=== PATIENT | female | born 1935 | race Caucasian/White ===

== ENCOUNTER 2019-03-03 19:00 | Inpatient (IN) ==
[2019-03-03] MEDS ORDERED: ONDANSETRON 4 MG/2 ML VIAL IV STA (19:39)
[2019-03-03] MEDS ORDERED: DILTIAZEM 50 MG/10 ML VIAL IV STA (19:39)
[2019-03-03] MEDS ORDERED: methylPREDNISolone SOD SUC 125 MG/2 ML VIAL IV STA (19:39)
[2019-03-03] MEDS ORDERED: FUROSEMIDE 100 MG/10 ML VIAL IV STA (19:39)
[2019-03-03 19:52] LABS: Basophils % 0.2 % (0.0-0.8); Hematocrit 41.3 VOL% (35.7-47.0); Hemoglobin 13.1 GM/DL (12.0-16.0); Immature Granulocytes % 0.9 %; Immature Granulocytes Absolute 0.11 #; Lymphocytes # 0.9 10*3/uL (1.4-4.0); Lymphocytes % 7.6 % (21.3-54.2); Mean Corpuscular HGB Conc 31.7 GM/DL (32-36); Mean Corpuscular Volume 97.2 FL (87-102); Mean Platelet Volume 10.9 FL (9.6-12.0); Monocytes % 5.1 % (1.7-12.7); Neutrophils % 86.2 % (38.7-73.9); Platelet Count 144 T/CUMM (130-400); Red Blood Count 4.25 MC/CUMM (3.8-5.5); Red Cell Distribution Width 13.2 % (9.3-17.3); White Blood Count 12.1 T/CUMM (4-12)
[2019-03-03] MEDS ORDERED: ALBUTEROL NEB SOLN 5 MG/ML 20 ML/BOTTLE RESP TX SCH (20:00)
[2019-03-03 20:02] LABS: INR 1.1; PT Patient Result 12.3 SECS
[2019-03-03 20:12] LABS: Albumin 3.1 G/DL (3.4-5.0); Bilirubin,Total 0.8 MG/DL (0.2-1.0); Calcium 8.4 MG/DL (8.5-10.1); Osmolality,Calculated 289.3 MOS/KG (273-304); Total Protein 7.2 G/DL (6.4-8.3)
[2019-03-03 20:19] LABS: Eosinophils 1 % (0-10); Lymphocytes 8 % (20-55); Segmented Neutrophils 86 % (50-85); Total Cells Counted 100
[2019-03-03 20:20] LABS: Hypochromasia Slight; Platelet Estimate Adequate
[2019-03-03] MEDS ORDERED: POTASSIUM CHLORIDE 20 MEQ TABLET PO STA (20:30)
[2019-03-03] MEDS ORDERED: MAGNESIUM SULF RIDER 2 GM in PREMIX 1 EACH IV STA (20:30)
[2019-03-03] MEDS ORDERED: SODIUM CHLORIDE 0.9% 500 ML IV STA (20:39)
[2019-03-03] MEDS ORDERED: ONDANSETRON 4 MG/2 ML VIAL IV PRN (21:27)
[2019-03-03] MEDS ORDERED: ALBUTEROL 2.5 MG/3 ML NEB RESP TX PRN (21:27)
[2019-03-03] MEDS ORDERED: MAGNESIUM SULF RIDER 4 GM in PREMIX 1 EACH IV PRN (21:32)
[2019-03-03 21:46] LABS: Apearance,Urine CLEAR (Clear); Bilirubin,Urine Negative (Negative); Blood, Urine Large mg/dL (Negative); Glucose,Urine (UA) Negative (Negative); Ketones,Urine Negative (Negative); Mucus,Urine Occasional /LPF (Occasional); Nitrite,Urine Negative (Negative); Protein,Urine 30 MG/DL; Squamous Epithelial Cell,Urine Occasional /HPF (0-10); Urine Color Yellow (Yellow); Urine Specific Gravity 1.013 (1.001-1.035); Urine Urobilinogen < 2.0 EU/DL (0.2-1.0); WBC,Urine 1 /HPF (0-6)
[2019-03-03] MEDS: SODIUM CHLORIDE 0.9% 1,000 ML IV SCH (21:56)
[2019-03-03] MEDS ORDERED: ENOXAPARIN 30 MG/0.3 ML SYRINGE SUBCUT SCH (22:00)
[2019-03-03 22:52] LABS: CKMB % 0.6 %; Troponin I 0.055 NG/ML (0.00-0.045)
[2019-03-04] MEDS: SODIUM CHLORIDE 0.9% 1,000 ML IV SCH (00:49)
[2019-03-04] MEDS: MAGNESIUM SULF RIDER 2 GM in PREMIX 1 EACH IV PRN ×2 (05:54→07:37)
[2019-03-04 07:14] LABS: Basophils % 0.3 % (0.0-0.8); Hematocrit 38.8 VOL% (35.7-47.0); Hemoglobin 12.3 GM/DL (12.0-16.0); Immature Granulocytes % 0.5 %; Immature Granulocytes Absolute 0.06 #; Lymphocytes # 0.9 10*3/uL (1.4-4.0); Lymphocytes % 8.2 % (21.3-54.2); Mean Corpuscular HGB Conc 31.7 GM/DL (32-36); Mean Corpuscular Volume 99.5 FL (87-102); Mean Platelet Volume 10.9 FL (9.6-12.0); Monocytes % 3.3 % (1.7-12.7); Neutrophils % 87.7 % (38.7-73.9); Platelet Count 125 T/CUMM (130-400); Red Cell Distribution Width 13.5 % (9.3-17.3); White Blood Count 11.4 T/CUMM (4-12)
[2019-03-04 07:40] LABS: Band Neutrophils 58 % (0-10); Lymphocytes 5 % (20-55); Metamyelocytes 2 %; Platelet Estimate Adequate; Segmented Neutrophils 31 % (50-85); Total Cells Counted 100
[2019-03-04 07:41] LABS: Anisocytosis 1+; Poikilocytosis Slight
[2019-03-04] MEDS ORDERED: LORazepam 0.5 MG TABLET PO ONE (08:18)
[2019-03-04] MEDS: FLUoxetine 20 MG CAPSULE PO SCH (08:33)
[2019-03-04] MEDS: DILTIAZEM CD 120 MG CAPSULE PO SCH (08:33)
[2019-03-04] MEDS: APIXABAN 5 MG TABLET PO SCH ×2 (08:33→21:57)
[2019-03-04] MEDS: PANTOPRAZOLE 40 MG TABLET PO SCH (08:33)
[2019-03-04] MEDS: FLUCONAZOLE 100 MG TABLET PO SCH (08:33)
[2019-03-04] MEDS: POTASSIUM CHLORIDE RIDER 10 MEQ in PREMIX 1 EACH IV PRN ×3 (11:33→13:33)
[2019-03-04] MEDS: FUROSEMIDE 40 MG TABLET PO SCH (14:36)
[2019-03-04] MEDS: ACETAMINOPHEN 325 MG TABLET PO PRN (16:13)
[2019-03-04 19:48] LABS: Albumin 2.7 G/DL (3.4-5.0); Bilirubin,Total 0.5 MG/DL (0.2-1.0); Calcium 7.9 MG/DL (8.5-10.1); Osmolality,Calculated 302.1 MOS/KG (273-304); Total Protein 6.9 G/DL (6.4-8.3)
[2019-03-04] MEDS ORDERED: LOPERAMIDE 2 MG CAPSULE PO PRN (21:55)
[2019-03-04] MEDS: AMPICILLIN/SULBACTAM 1,500 MG in SODIUM CHLORIDE 0.9% 100 ML IV SCH (22:36)
[2019-03-05 05:31] LABS: Basophils % 0.2 % (0.0-0.8); Hemoglobin 11.1 GM/DL (12.0-16.0); Immature Granulocytes % 0.8 %; Lymphocytes # 0.8 10*3/uL (1.4-4.0); Lymphocytes % 5.6 % (21.3-54.2); Mean Corpuscular HGB Conc 32.6 GM/DL (32-36); Mean Corpuscular Volume 95.8 FL (87-102); Mean Platelet Volume 11.2 FL (9.6-12.0); Monocytes % 3.5 % (1.7-12.7); Neutrophils % 89.9 % (38.7-73.9); Platelet Count 136 T/CUMM (130-400); Red Blood Count 3.55 MC/CUMM (3.8-5.5); Red Cell Distribution Width 13.2 % (9.3-17.3); White Blood Count 13.3 T/CUMM (4-12)
[2019-03-05 06:03] LABS: Osmolality,Calculated 299.4 MOS/KG (273-304)
[2019-03-05 06:36] LABS: Band Neutrophils 1 % (0-10); Lymphocytes 6 % (20-55); Platelet Estimate Decreased; Segmented Neutrophils 90 % (50-85); Total Cells Counted 100
[2019-03-05] MEDS: FUROSEMIDE 40 MG TABLET PO SCH (09:12)
[2019-03-05] MEDS: DILTIAZEM CD 120 MG CAPSULE PO SCH (09:12)
[2019-03-05] MEDS: FLUCONAZOLE 100 MG TABLET PO SCH (09:12)
[2019-03-05] MEDS: FLECAINIDE 50 MG TABLET PO SCH ×2 (09:12→20:14)
[2019-03-05] MEDS: FLUoxetine 20 MG CAPSULE PO SCH (09:13)
[2019-03-05] MEDS: PANTOPRAZOLE 40 MG TABLET PO SCH (09:13)
[2019-03-05] MEDS: APIXABAN 5 MG TABLET PO SCH ×2 (09:13→20:14)
[2019-03-05] MEDS: AMPICILLIN/SULBACTAM 1,500 MG in SODIUM CHLORIDE 0.9% 100 ML IV SCH ×2 (09:18→22:40)
[2019-03-05] MEDS: POTASSIUM CHLORIDE 20 MEQ TABLET PO PRN ×3 (10:50→16:04)
[2019-03-05] MEDS: FLUTICASONE/SALMETEROL 500-50 DISKUS 14 DOSE INH SCH ×2 (10:51→20:14)
[2019-03-05] MEDS: methylPREDNISolone SOD SUC 40 MG/1 ML VIAL IV SCH ×2 (10:51→17:39)
[2019-03-05] MEDS ORDERED: FUROSEMIDE 20 MG TABLET PO SCH (14:43)
[2019-03-05] MEDS ORDERED: ALBUTEROL/IPRATROPIUM 3 ML NEB RESP TX SCH (15:00)
[2019-03-05] MEDS: ACETAMINOPHEN 325 MG TABLET PO PRN (22:44)
[2019-03-06] MEDS: methylPREDNISolone SOD SUC 40 MG/1 ML VIAL IV SCH ×2 (01:39→10:20)
[2019-03-06 06:02] LABS: Basophils % 0.2 % (0.0-0.8); Hematocrit 34.1 VOL% (35.7-47.0); Hemoglobin 11.1 GM/DL (12.0-16.0); Immature Granulocytes % 1.4 %; Immature Granulocytes Absolute 0.14 #; Lymphocytes # 0.5 10*3/uL (1.4-4.0); Mean Corpuscular HGB Conc 32.6 GM/DL (32-36); Mean Corpuscular Volume 95.8 FL (87-102); Mean Platelet Volume 11.2 FL (9.6-12.0); Monocytes % 1.6 % (1.7-12.7); Neutrophils % 91.8 % (38.7-73.9); Platelet Count 166 T/CUMM (130-400); Red Blood Count 3.56 MC/CUMM (3.8-5.5); Red Cell Distribution Width 13.6 % (9.3-17.3); White Blood Count 9.7 T/CUMM (4-12)
[2019-03-06 06:22] LABS: Band Neutrophils 3 % (0-10); Lymphocytes 4 % (20-55); Segmented Neutrophils 92 % (50-85); Total Cells Counted 100
[2019-03-06 06:23] LABS: Ovalocytes 1+; Platelet Estimate Normal
[2019-03-06 06:37] LABS: Calcium 8.2 MG/DL (8.5-10.1); Osmolality,Calculated 307.1 MOS/KG (273-304)
[2019-03-06] MEDS ORDERED: ALBUTEROL/IPRATROPIUM 3 ML NEB RESP TX SCH (07:00)
[2019-03-06 08:28] VITALS: BP 137/88
[2019-03-06] MEDS ORDERED: SODIUM CHLORIDE 0.9% 1,000 ML IV SCH (08:30)
[2019-03-06] MEDS ORDERED: DILTIAZEM CD 120 MG CAPSULE PO SCH (09:00)
[2019-03-06] MEDS: PANTOPRAZOLE 40 MG TABLET PO SCH (10:14)
[2019-03-06] MEDS: FLECAINIDE 50 MG TABLET PO SCH (10:14)
[2019-03-06] MEDS: FLUoxetine 20 MG CAPSULE PO SCH (10:14)
[2019-03-06] MEDS: APIXABAN 5 MG TABLET PO SCH (10:15)
[2019-03-06] MEDS: FLUCONAZOLE 100 MG TABLET PO SCH (10:15)
[2019-03-06] MEDS: AMPICILLIN/SULBACTAM 1,500 MG in SODIUM CHLORIDE 0.9% 100 ML IV SCH (10:15)
[2019-03-06] MEDS: FLUTICASONE/SALMETEROL 500-50 DISKUS 14 DOSE INH SCH (10:19)
== END 2019-03-06 12:30 | disposition swing bed (61) | DRG 308 ==
LOC: EDBD → EDUNIT# → N.ED 19:00 → N.EDINP 21:27 → SUATTDRO 23:50 → SUPCPDRO 23:50 → N.CC 23:54 → N.TELES 03-04 19:58
PROVIDERS: ADMIT Internal Medicine Geriatric Medicine; ATTEND Internal Medicine

== ENCOUNTER 2019-09-27 21:11 | Inpatient (IN) ==
[2019-09-27] MEDS ORDERED: ONDANSETRON 4 MG/2 ML VIAL IV STA (21:34)
[2019-09-27] MEDS ORDERED: cefTRIAXone 1,000 MG in SODIUM CHLORIDE 0.9% 100 ML IV STA (21:34)
[2019-09-27] MEDS ORDERED: methylPREDNISolone SOD SUC 125 MG/2 ML VIAL IV STA (21:34)
[2019-09-27] MEDS ORDERED: FUROSEMIDE 40 MG/4 ML VIAL IV STA (21:34)
[2019-09-27] MEDS ORDERED: ALBUTEROL NEB SOLN 5 MG/ML 20 ML/BOTTLE RESP TX SCH (22:00)
[2019-09-27 22:05] LABS: Basophils # 0.1 10*3/uL (0.0-0.2); Basophils % 0.6 % (0.0-0.8); Eosinophils # 0.2 10*3/uL (0.0-0.87); Eosinophils % 1.5 % (0.00-10.9); Hematocrit 40.6 VOL% (35.7-47.0); Hemoglobin 13.1 GM/DL (12.0-16.0); Immature Granulocytes % 4.2 %; Immature Granulocytes Absolute 0.46 #; Lymphocytes # 1.9 10*3/uL (1.4-4.0); Lymphocytes % 17.4 % (21.3-54.2); Mean Corpuscular HGB Conc 32.3 GM/DL (32-36); Mean Corpuscular Volume 97.6 FL (87-102); Mean Platelet Volume 10.1 FL (9.6-12.0); Monocytes % 8.5 % (1.7-12.7); Neutrophils % 67.8 % (38.7-73.9); Platelet Count 270 T/CUMM (130-400); Red Blood Count 4.16 MC/CUMM (3.8-5.5); White Blood Count 10.9 T/CUMM (4-12)
[2019-09-27 22:26] LABS: PT Patient Result 10.8 SECS (9.6-12.2); Partial Thromboplastin Time 26.9 SECS (20.8-36.0)
[2019-09-27 22:36] LABS: Alanine Aminotransferase 20 U/L (13-56); Albumin 3.4 G/DL (3.4-5.0); Alkaline Phosphatase 121 U/L (45-117); Aspartate Amino Transferase 23 U/L (0-37); Blood Urea Nitrogen 44 MG/DL (7-18); Calcium 9.1 MG/DL (8.5-10.1); Estimated Glom Filtration Rate 22 ML/MIN; Glucose 121 MG/DL (74-106); Osmolality,Calculated 286.7 MOS/KG (273-304); Total Protein 7.8 G/DL (6.4-8.3); Troponin I < 0.015 NG/ML (0.00-0.045)
[2019-09-27 22:42] LABS: Apearance,Urine CLEAR (Clear); Bilirubin,Urine Negative (Negative); Blood, Urine Negative (Negative); Glucose,Urine (UA) Negative (Negative); Ketones,Urine Negative (Negative); Mucus,Urine Occasional /LPF (Occasional); Nitrite,Urine Negative (Negative); Protein,Urine Negative; RBC,Urine 1 /HPF (0-4); Squamous Epithelial Cell,Urine Occasional /HPF (0-10); Urine Color Straw (Yellow); Urine Urobilinogen < 2.0 EU/DL (0.2-1.0); WBC,Urine 5 /HPF (0-6)
[2019-09-27 23:05] LABS: ABG Base Excess 0.9 MMOL/L (-2.5-2.5); ABG HCO3 25.1 MMOL/L (20-26); ABG Oxygen Saturation 96.4 % (95-100); ABG PCO2 34.3 MM HG (35-48); ABG PH 7.456 (7.35-7.45); ABG PO2 81.1 MM HG (80-95); Allen Test Positive
[2019-09-27] MEDS ORDERED: ONDANSETRON 4 MG/2 ML VIAL IV PRN (23:49)
[2019-09-27] MEDS ORDERED: DOCUSATE SODIUM 100 MG CAPSULE PO PRN (23:49)
[2019-09-27] MEDS ORDERED: ACETAMINOPHEN 325 MG TABLET PO PRN (23:49)
[2019-09-27] MEDS ORDERED: ALBUTEROL 2.5 MG/3 ML NEB RESP TX PRN (23:54)
[2019-09-27] MEDS ORDERED: hydrALAZINE 20 MG/1 ML VIAL IV PRN (23:57)
[2019-09-27] MEDS ORDERED: POTASSIUM CHLORIDE 20 MEQ TABLET PO PRN (23:58)
[2019-09-28] MEDS: methylPREDNISolone SOD SUC 40 MG/1 ML VIAL IV SCH ×4 (02:15→21:06)
[2019-09-28] MEDS: DILTIAZEM 60 MG TABLET PO SCH ×3 (02:16→20:26)
[2019-09-28] MEDS: AZITHROMYCIN INJ 500 MG in SODIUM CHLORIDE 0.9% 250 ML IV SCH (02:30)
[2019-09-28] MEDS: guaiFENesin/DM ER 600-30 MG TABLET PO PRN ×2 (02:30→20:27)
[2019-09-28] MEDS: ZALEPLON 5 MG CAPSULE PO PRN ×2 (02:30→20:27)
[2019-09-28] MEDS: BUDESONIDE 0.5 MG/2 ML NEB RESP TX SCH ×3 (02:33→19:49)
[2019-09-28] MEDS: ALBUTEROL/IPRATROPIUM 3 ML NEB RESP TX SCH ×5 (02:33→19:49)
[2019-09-28 05:13] LABS: Basophils % 0.4 % (0.0-0.8); Hematocrit 35.9 VOL% (35.7-47.0); Hemoglobin 11.9 GM/DL (12.0-16.0); Immature Granulocytes % 4.1 %; Immature Granulocytes Absolute 0.39 #; Lymphocytes # 0.3 10*3/uL (1.4-4.0); Lymphocytes % 3.4 % (21.3-54.2); Mean Corpuscular HGB Conc 33.1 GM/DL (32-36); Mean Corpuscular Volume 96.8 FL (87-102); Mean Platelet Volume 10.5 FL (9.6-12.0); Monocytes % 0.5 % (1.7-12.7); Neutrophils % 91.6 % (38.7-73.9); Platelet Count 242 T/CUMM (130-400); Red Blood Count 3.71 MC/CUMM (3.8-5.5); Red Cell Distribution Width 13.8 % (9.3-17.3); White Blood Count 9.5 T/CUMM (4-12)
[2019-09-28 05:40] LABS: Albumin 3.1 G/DL (3.4-5.0); Bilirubin,Total 1.3 MG/DL (0.2-1.0); Calcium 8.7 MG/DL (8.5-10.1); Osmolality,Calculated 300.3 MOS/KG (273-304); Total Protein 7.3 G/DL (6.4-8.3)
[2019-09-28 06:05] LABS: Hypochromasia Slight; Lymphocytes 1 % (20-55); Metamyelocytes 1 %; Platelet Estimate Normal; Segmented Neutrophils 97 % (50-85); Total Cells Counted 100
[2019-09-28] MEDS ORDERED: FUROSEMIDE 40 MG/4 ML VIAL IV SCH (08:00)
[2019-09-28] MEDS: PANTOPRAZOLE 40 MG TABLET PO SCH (09:52)
[2019-09-28] MEDS: APIXABAN 2.5 MG TABLET PO SCH ×2 (09:52→20:27)
[2019-09-28] MEDS ORDERED: SODIUM CHLORIDE 0.9% 1,000 ML IV SCH (13:30)
[2019-09-28] MEDS ORDERED: cefTRIAXone 1,000 MG in SYRINGE 1 EACH IV SCH (23:00)
[2019-09-29] MEDS: ALBUTEROL/IPRATROPIUM 3 ML NEB RESP TX SCH ×4 (00:28→11:15)
[2019-09-29] MEDS: AZITHROMYCIN INJ 500 MG in SODIUM CHLORIDE 0.9% 250 ML IV SCH (01:52)
[2019-09-29] MEDS: methylPREDNISolone SOD SUC 40 MG/1 ML VIAL IV SCH (05:04)
[2019-09-29 05:42] LABS: Calcium 8.2 MG/DL (8.5-10.1); Osmolality,Calculated 303.1 MOS/KG (273-304)
[2019-09-29] MEDS: BUDESONIDE 0.5 MG/2 ML NEB RESP TX SCH (07:30)
[2019-09-29] MEDS: APIXABAN 2.5 MG TABLET PO SCH (08:56)
[2019-09-29] MEDS: PANTOPRAZOLE 40 MG TABLET PO SCH (08:56)
[2019-09-29] MEDS: DILTIAZEM 60 MG TABLET PO SCH (08:56)
[2019-09-29] MEDS ORDERED: POTASSIUM CHLORIDE 20 MEQ TABLET PO ONE (09:00)
[2019-09-29 11:51] VITALS: BP 112/71
== END 2019-09-29 14:07 | disposition home or self-care (01) | DRG 191 ==
LOC: EDBD → EDUNIT# → N.ED 21:11 → SUATTDRO 09-28 00:34 → N.EDINP 09-28 00:34 → N.5E 09-28 00:39
PROVIDERS: ADMIT Internal Medicine; ATTEND Emergency Medicine

== ENCOUNTER 2019-10-16 17:24 | Observation (INO) ==
[2019-10-16 19:07] LABS: Basophils % 0.7 % (0.0-0.8); Eosinophils # 0.2 10*3/uL (0.0-0.87); Eosinophils % 3.7 % (0.00-10.9); Hematocrit 36.6 VOL% (35.7-47.0); Hemoglobin 11.9 GM/DL (12.0-16.0); Immature Granulocytes % 1.1 %; Immature Granulocytes Absolute 0.05 #; Lymphocytes # 1.1 10*3/uL (1.4-4.0); Mean Corpuscular HGB Conc 32.5 GM/DL (32-36); Mean Corpuscular Volume 97.6 FL (87-102); Mean Platelet Volume 9.9 FL (9.6-12.0); Monocytes % 9.4 % (1.7-12.7); Neutrophils % 62.1 % (38.7-73.9); Platelet Count 203 T/CUMM (130-400); Red Blood Count 3.75 MC/CUMM (3.8-5.5); Red Cell Distribution Width 13.6 % (9.3-17.3); White Blood Count 4.6 T/CUMM (4-12)
[2019-10-16 19:16] LABS: Calcium 8.8 MG/DL (8.5-10.1)
[2019-10-16 19:22] LABS: Apearance,Urine CLEAR (Clear); Bilirubin,Urine Negative (Negative); Blood, Urine Negative (Negative); Glucose,Urine (UA) Negative (Negative); Hyaline Casts,Urine 1 /LPF (0-3); Ketones,Urine Negative (Negative); Mucus,Urine Occasional /LPF (Occasional); Nitrite,Urine Negative (Negative); Protein,Urine Negative; RBC,Urine 1 /HPF (0-4); Squamous Epithelial Cell,Urine Occasional /HPF (0-10); Urine Color Yellow (Yellow); Urine Specific Gravity 1.018 (1.001-1.035); Urine Urobilinogen < 2.0 EU/DL (0.2-1.0); WBC,Urine 1 /HPF (0-6)
[2019-10-16 19:28] LABS: PT Patient Result 10.7 SECS (9.6-12.2)
[2019-10-16] MEDS ORDERED: ONDANSETRON 4 MG/2 ML VIAL IV PRN (20:57)
[2019-10-16] MEDS ORDERED: ACETAMINOPHEN 325 MG TABLET PO PRN (20:57)
[2019-10-16] MEDS ORDERED: FUROSEMIDE 20 MG TABLET PO PRN (22:21)
[2019-10-16] MEDS ORDERED: MELATONIN 3 MG TABLET PO SCH (22:30)
[2019-10-16] MEDS: APIXABAN 2.5 MG TABLET PO SCH (23:20)
[2019-10-16] MEDS: FLECAINIDE 50 MG TABLET PO SCH (23:21)
[2019-10-16] MEDS: FLUTICASONE/SALMETEROL 500-50 DISKUS 14 DOSE INH SCH (23:21)
[2019-10-17] MEDS ORDERED: ALBUTEROL 2.5 MG/3 ML NEB RESP TX SCH (07:00)
[2019-10-17 07:25] LABS: Basophils % 0.8 % (0.0-0.8); Eosinophils # 0.2 10*3/uL (0.0-0.87); Eosinophils % 5.5 % (0.00-10.9); Hematocrit 33.4 VOL% (35.7-47.0); Hemoglobin 10.9 GM/DL (12.0-16.0); Immature Granulocytes % 1.1 %; Immature Granulocytes Absolute 0.04 #; Lymphocytes # 1.4 10*3/uL (1.4-4.0); Mean Corpuscular HGB Conc 32.6 GM/DL (32-36); Mean Corpuscular Volume 96.5 FL (87-102); Mean Platelet Volume 9.6 FL (9.6-12.0); Monocytes % 11.2 % (1.7-12.7); Neutrophils % 43.4 % (38.7-73.9); Platelet Count 185 T/CUMM (130-400); Red Blood Count 3.46 MC/CUMM (3.8-5.5); Red Cell Distribution Width 13.7 % (9.3-17.3); White Blood Count 3.7 T/CUMM (4-12)
[2019-10-17 08:02] LABS: Alanine Aminotransferase 20 U/L (13-56); Albumin 2.5 G/DL (3.4-5.0); Alkaline Phosphatase 108 U/L (45-117); Aspartate Amino Transferase 27 U/L (0-37); Bilirubin,Total < 0.39 MG/DL (0.2-1.0); Blood Urea Nitrogen 39 MG/DL (7-18); Calcium 8.5 MG/DL (8.5-10.1); Estimated Glom Filtration Rate 35 ML/MIN; Glucose 79 MG/DL (74-106); Total Protein 6.2 G/DL (6.4-8.3)
[2019-10-17] MEDS ORDERED: FLUoxetine 20 MG CAPSULE PO SCH (09:00)
[2019-10-17] MEDS ORDERED: DILTIAZEM 60 MG TABLET PO SCH ×2 (09:00→11:42)
[2019-10-17] MEDS ORDERED: POTASSIUM CHLORIDE 20 MEQ TABLET PO SCH (09:00)
[2019-10-17] MEDS: FLECAINIDE 50 MG TABLET PO SCH (10:03)
[2019-10-17] MEDS: FLUTICASONE/SALMETEROL 500-50 DISKUS 14 DOSE INH SCH (10:04)
[2019-10-17] MEDS: APIXABAN 2.5 MG TABLET PO SCH (10:04)
[2019-10-17 11:40] VITALS: BP 100/71
== END 2019-10-17 14:22 | disposition home health service (06) ==
LOC: EDBD → EDUNIT# → N.EDINP 17:24 → N.ED 17:24 → N.3E 21:28
PROVIDERS: ADMIT Internal Medicine; ATTEND Internal Medicine

== ENCOUNTER 2019-11-03 18:57 | Inpatient (IN) ==
[2019-11-03] MEDS ORDERED: FUROSEMIDE 40 MG/4 ML VIAL IV STA (19:19)
[2019-11-03] MEDS ORDERED: PIPERACILLIN/TAZOBACTAM 3,375 MG in SODIUM CHLORIDE 0.9% 100 ML IV STA (19:19)
[2019-11-03] MEDS ORDERED: DILTIAZEM 50 MG/10 ML VIAL IV STA (19:19)
[2019-11-03] MEDS ORDERED: ONDANSETRON 4 MG/2 ML VIAL IV STA (19:19)
[2019-11-03] MEDS ORDERED: ALBUTEROL/IPRATROPIUM 3 ML NEB RESP TX STA (19:19)
[2019-11-03 20:36] LABS: Basophils % 0.6 % (0.0-0.8); Eosinophils # 0.1 10*3/uL (0.0-0.87); Eosinophils % 2.1 % (0.00-10.9); Hematocrit 38.2 VOL% (35.7-47.0); Hemoglobin 12.3 GM/DL (12.0-16.0); Immature Granulocytes % 0.4 %; Immature Granulocytes Absolute 0.02 #; Lymphocytes # 1.3 10*3/uL (1.4-4.0); Lymphocytes % 27.2 % (21.3-54.2); Mean Corpuscular HGB Conc 32.2 GM/DL (32-36); Mean Corpuscular Volume 96.7 FL (87-102); Mean Platelet Volume 10.8 FL (9.6-12.0); Neutrophils % 59.7 % (38.7-73.9); Platelet Count 146 T/CUMM (130-400); Red Blood Count 3.95 MC/CUMM (3.8-5.5); Red Cell Distribution Width 13.1 % (9.3-17.3); White Blood Count 4.7 T/CUMM (4-12)
[2019-11-03 20:37] LABS: Apearance,Urine CLEAR (Clear); Bilirubin,Urine Negative (Negative); Blood, Urine Small mg/dL (Negative); Glucose,Urine (UA) Negative (Negative); Hyaline Casts,Urine 3 /LPF (0-3); Ketones,Urine 5 mg/dL (Negative); Mucus,Urine Occasional /LPF (Occasional); Nitrite,Urine Negative (Negative); Protein,Urine Negative; RBC,Urine 5 /HPF (0-4); Urine Color Yellow (Yellow); Urine Specific Gravity 1.015 (1.001-1.035); Urine Urobilinogen < 2.0 EU/DL (0.2-1.0); WBC,Urine <1 /HPF (0-6)
[2019-11-03 20:39] LABS: INR 1.1; PT Patient Result 11.4 SECS (9.6-12.2)
[2019-11-03 20:56] LABS: Alanine Aminotransferase 17 U/L (13-56); Albumin 3.3 G/DL (3.4-5.0); Alkaline Phosphatase 101 U/L (45-117); Aspartate Amino Transferase 19 U/L (0-37); Bilirubin,Total < 0.39 MG/DL (0.2-1.0); Blood Urea Nitrogen 32 MG/DL (7-18); Calcium 8.8 MG/DL (8.5-10.1); Estimated Glom Filtration Rate 32 ML/MIN; Glucose 86 MG/DL (74-106); Osmolality,Calculated 280.7 MOS/KG (273-304)
[2019-11-03] MEDS ORDERED: MAGNESIUM SULF RIDER 2 GM in PREMIX 1 EACH IV STA (21:08)
[2019-11-03] MEDS: dilTIAZem Drip 125 MG/125 ML PREMIX IV SCH (21:11)
[2019-11-03] MEDS ORDERED: SODIUM CHLORIDE 0.9% 100 ML IV ONE (23:06)
[2019-11-03] MEDS: FLECAINIDE 50 MG TABLET PO SCH (23:18)
[2019-11-03] MEDS: cefTRIAXone 1,000 MG in SYRINGE 1 EACH IV SCH (23:19)
[2019-11-04] MEDS: ACETAMINOPHEN 325 MG TABLET PO PRN ×2 (01:44→10:35)
[2019-11-04] MEDS: ALBUTEROL 2.5 MG/3 ML NEB RESP TX SCH ×4 (01:51→19:22)
[2019-11-04 05:52] LABS: Basophils % 0.6 % (0.0-0.8); Eosinophils # 0.1 10*3/uL (0.0-0.87); Eosinophils % 1.7 % (0.00-10.9); Hematocrit 36.3 VOL% (35.7-47.0); Hemoglobin 11.8 GM/DL (12.0-16.0); Immature Granulocytes % 0.6 %; Immature Granulocytes Absolute 0.03 #; Lymphocytes # 1.4 10*3/uL (1.4-4.0); Lymphocytes % 26.9 % (21.3-54.2); Mean Corpuscular HGB Conc 32.5 GM/DL (32-36); Mean Corpuscular Volume 96.5 FL (87-102); Mean Platelet Volume 10.7 FL (9.6-12.0); Monocytes % 12.1 % (1.7-12.7); Neutrophils % 58.1 % (38.7-73.9); Platelet Count 126 T/CUMM (130-400); Red Blood Count 3.76 MC/CUMM (3.8-5.5); Red Cell Distribution Width 13.1 % (9.3-17.3); White Blood Count 5.2 T/CUMM (4-12)
[2019-11-04 06:09] LABS: Calcium 8.6 MG/DL (8.5-10.1); Osmolality,Calculated 278.8 MOS/KG (273-304)
[2019-11-04] MEDS ORDERED: POTASSIUM CHLORIDE 20 MEQ/15 ML UDCUP PER TUBE PRN (07:16)
[2019-11-04] MEDS ORDERED: MAGNESIUM SULF RIDER 4 GM in PREMIX 1 EACH IV PRN (07:16)
[2019-11-04] MEDS ORDERED: MAGNESIUM SULF RIDER 2 GM in PREMIX 1 EACH IV PRN (07:16)
[2019-11-04] MEDS: POTASSIUM CHLORIDE 20 MEQ TABLET PO SCH ×2 (08:25→12:09)
[2019-11-04] MEDS: FLUoxetine 20 MG CAPSULE PO SCH (08:25)
[2019-11-04] MEDS: APIXABAN 2.5 MG TABLET PO SCH ×2 (08:26→20:39)
[2019-11-04] MEDS: PANTOPRAZOLE 40 MG TABLET PO SCH (08:26)
[2019-11-04] MEDS: CLORAZEPATE 7.5 MG TABLET PO SCH ×2 (08:26→20:39)
[2019-11-04] MEDS: DILTIAZEM 60 MG TABLET PO SCH ×4 (08:26→20:40)
[2019-11-04] MEDS: FLUTICASONE/SALMETEROL 500-50 DISKUS 14 DOSE INH SCH ×2 (08:34→20:40)
[2019-11-04] MEDS ORDERED: DILTIAZEM 60 MG TABLET PO SCH (09:00)
[2019-11-04] MEDS ORDERED: ALBUTEROL SULFATE 90 MCG INH SCH (09:00)
[2019-11-04] MEDS: FLECAINIDE 50 MG TABLET PO SCH ×2 (10:36→23:32)
[2019-11-04] MEDS ORDERED: DILTIAZEM 60 MG TABLET PO ONE (13:22)
[2019-11-04] MEDS: dilTIAZem Drip 125 MG/125 ML PREMIX IV SCH (20:21)
[2019-11-04] MEDS: cefTRIAXone 1,000 MG in SYRINGE 1 EACH IV SCH (23:33)
[2019-11-05] MEDS: ALBUTEROL 2.5 MG/3 ML NEB RESP TX SCH ×4 (01:21→19:12)
[2019-11-05] MEDS: DILTIAZEM 60 MG TABLET PO SCH ×2 (02:58→09:29)
[2019-11-05] MEDS: APIXABAN 2.5 MG TABLET PO SCH ×2 (09:37→21:11)
[2019-11-05] MEDS: PANTOPRAZOLE 40 MG TABLET PO SCH (09:37)
[2019-11-05] MEDS: CLORAZEPATE 7.5 MG TABLET PO SCH ×3 (09:37→22:00)
[2019-11-05] MEDS: FLUoxetine 20 MG CAPSULE PO SCH (09:37)
[2019-11-05] MEDS: FLUTICASONE/SALMETEROL 500-50 DISKUS 14 DOSE INH SCH ×2 (09:38→21:11)
[2019-11-05] MEDS: DILTIAZEM CD 120 MG CAPSULE PO SCH ×2 (09:43→21:10)
[2019-11-05 11:04] LABS: Calcium 8.5 MG/DL (8.5-10.1); Osmolality,Calculated 285.4 MOS/KG (273-304)
[2019-11-05] MEDS: DOXYCYCLINE HYCLATE 100 MG CAPSULE PO SCH ×2 (11:48→21:11)
[2019-11-05] MEDS: FLECAINIDE 50 MG TABLET PO SCH ×2 (11:48→22:00)
[2019-11-05] MEDS: dilTIAZem Drip 125 MG/125 ML PREMIX IV SCH (21:15)
[2019-11-06] MEDS: ALBUTEROL 2.5 MG/3 ML NEB RESP TX SCH ×4 (00:35→20:43)
[2019-11-06] MEDS: CLORAZEPATE 7.5 MG TABLET PO SCH (06:13)
[2019-11-06] MEDS: FLECAINIDE 50 MG TABLET PO SCH (10:05)
[2019-11-06] MEDS: FLUoxetine 20 MG CAPSULE PO SCH (10:05)
[2019-11-06] MEDS: APIXABAN 2.5 MG TABLET PO SCH ×2 (10:05→22:44)
[2019-11-06] MEDS: PANTOPRAZOLE 40 MG TABLET PO SCH (10:06)
[2019-11-06] MEDS: DILTIAZEM CD 120 MG CAPSULE PO SCH ×2 (10:06→22:45)
[2019-11-06] MEDS: DOXYCYCLINE HYCLATE 100 MG CAPSULE PO SCH ×2 (10:09→22:43)
[2019-11-06] MEDS: FLUTICASONE/SALMETEROL 500-50 DISKUS 14 DOSE INH SCH ×2 (10:10→22:45)
[2019-11-06 10:40] LABS: Basophils % 0.8 % (0.0-0.8); Eosinophils # 0.2 10*3/uL (0.0-0.87); Eosinophils % 3.7 % (0.00-10.9); Hematocrit 36.4 VOL% (35.7-47.0); Hemoglobin 11.5 GM/DL (12.0-16.0); Immature Granulocytes % 0.8 %; Immature Granulocytes Absolute 0.04 #; Lymphocytes # 1.6 10*3/uL (1.4-4.0); Lymphocytes % 31.6 % (21.3-54.2); Mean Corpuscular HGB Conc 31.6 GM/DL (32-36); Mean Corpuscular Volume 100.3 FL (87-102); Mean Platelet Volume 10.1 FL (9.6-12.0); Monocytes % 11.4 % (1.7-12.7); Neutrophils % 51.7 % (38.7-73.9); Platelet Count 160 T/CUMM (130-400); Red Blood Count 3.63 MC/CUMM (3.8-5.5); Red Cell Distribution Width 13.4 % (9.3-17.3); White Blood Count 4.9 T/CUMM (4-12)
[2019-11-06 11:03] LABS: Calcium 8.9 MG/DL (8.5-10.1); Osmolality,Calculated 287.3 MOS/KG (273-304)
[2019-11-06] MEDS ORDERED: TUBERCULIN SKIN TEST 0.1 ML SYRINGE INTRADERM ONE (15:17)
[2019-11-06] MEDS: ACETAMINOPHEN 325 MG TABLET PO PRN (22:52)
[2019-11-07] MEDS: ALBUTEROL 2.5 MG/3 ML NEB RESP TX SCH ×3 (02:40→12:24)
[2019-11-07] MEDS: FLUoxetine 20 MG CAPSULE PO SCH (09:30)
[2019-11-07] MEDS: DILTIAZEM CD 120 MG CAPSULE PO SCH (09:30)
[2019-11-07] MEDS: DOXYCYCLINE HYCLATE 100 MG CAPSULE PO SCH (09:30)
[2019-11-07] MEDS: APIXABAN 2.5 MG TABLET PO SCH (09:30)
[2019-11-07] MEDS: PANTOPRAZOLE 40 MG TABLET PO SCH (09:30)
[2019-11-07] MEDS: FLUTICASONE/SALMETEROL 500-50 DISKUS 14 DOSE INH SCH (09:30)
[2019-11-07 12:02] VITALS: BP 133/83
== END 2019-11-07 13:01 | DRG 202 ==
LOC: EDUNIT# → EDBD → N.ED 18:57 → SUATTDRO 21:57 → N.EDINP 21:57 → N.ICU 22:23 → N.TELES 11-05 04:39
PROVIDERS: ADMIT Emergency Medicine; ATTEND Internal Medicine

== ENCOUNTER 2021-03-06 17:09 | Inpatient (IN) ==
[2021-03-06] MEDS ORDERED: SODIUM CHLORIDE 0.9% 500 ML IV STA (18:26)
[2021-03-06 18:42] LABS: Basophils % 0.6 % (0.0-0.8); Eosinophils # 0.2 10*3/uL (0.0-0.87); Eosinophils % 4.4 % (0.00-10.9); Hematocrit 33.9 VOL% (35.7-47.0); Hemoglobin 10.7 GM/DL (12.0-16.0); Immature Granulocytes % 0.4 %; Immature Granulocytes Absolute 0.02 #; Lymphocytes # 1.5 10*3/uL (1.4-4.0); Lymphocytes % 26.8 % (21.3-54.2); Mean Corpuscular HGB Conc 31.6 GM/DL (32-36); Mean Corpuscular Volume 98.8 FL (87-102); Mean Platelet Volume 11.1 FL (9.6-12.0); Monocytes % 7.6 % (1.7-12.7); Neutrophils % 60.2 % (38.7-73.9); Platelet Count 165 T/CUMM (130-400); Red Blood Count 3.43 MC/CUMM (3.8-5.5); Red Cell Distribution Width 13.6 % (9.3-17.3); White Blood Count 5.4 T/CUMM (4-12)
[2021-03-06 19:04] LABS: Albumin 3.3 G/DL (3.4-5.0); Bilirubin,Total 0.4 MG/DL (0.2-1.0); Calcium 8.6 MG/DL (8.5-10.1); Osmolality,Calculated 287.3 MOS/KG (273-304); Potassium 4.5 MMOL/L (3.5-5.1); Total Protein 6.3 G/DL (6.4-8.2)
[2021-03-06] MEDS ORDERED: MAGNESIUM SULF RIDER 2 GM/50 ML PREMIX IV STA (20:11)
[2021-03-06] MEDS ORDERED: ACETAMINOPHEN 325 MG TABLET PO PRN (20:48)
[2021-03-06] MEDS ORDERED: ONDANSETRON 4 MG/2 ML VIAL IV PRN (20:48)
[2021-03-06] MEDS ORDERED: SODIUM CHLORIDE 0.45% 1,000 ML IV SCH (21:00)
[2021-03-06] MEDS: ONDANSETRON 4 MG/2 ML VIAL IV STA ×2 (22:06→23:17)
[2021-03-06] MEDS: HYDROmorphone 2 MG/1 ML VIAL IV STA ×2 (22:06→23:16)
[2021-03-06] MEDS: PANTOPRAZOLE 40 MG VIAL IV STA ×2 (22:06→23:16)
[2021-03-07] MEDS: ALBUTEROL/IPRATROPIUM 3 ML NEB RESP TX SCH ×4 (00:48→20:15)
[2021-03-07 01:24] LABS: Basophils % 0.4 % (0.0-0.8); Eosinophils # 0.2 10*3/uL (0.0-0.87); Eosinophils % 4.5 % (0.00-10.9); Hematocrit 33.6 VOL% (35.7-47.0); Hemoglobin 10.7 GM/DL (12.0-16.0); Immature Granulocytes % 0.6 %; Immature Granulocytes Absolute 0.03 #; Lymphocytes # 1.5 10*3/uL (1.4-4.0); Mean Corpuscular HGB Conc 31.8 GM/DL (32-36); Mean Corpuscular Volume 99.7 FL (87-102); Mean Platelet Volume 11.1 FL (9.6-12.0); Monocytes % 8.6 % (1.7-12.7); Neutrophils % 55.9 % (38.7-73.9); Platelet Count 159 T/CUMM (130-400); Red Blood Count 3.37 MC/CUMM (3.8-5.5); Red Cell Distribution Width 13.5 % (9.3-17.3); White Blood Count 5.1 T/CUMM (4-12)
[2021-03-07 01:25] LABS: Calcium 8.7 MG/DL (8.5-10.1); Osmolality,Calculated 286.4 MOS/KG (273-304); Potassium 3.9 MMOL/L (3.5-5.1)
[2021-03-07] MEDS ORDERED: MAGNESIUM SULF RIDER 4 GM/100 ML PREMIX IV PRN (08:33)
[2021-03-07] MEDS ORDERED: MAGNESIUM SULF RIDER 2 GM/50 ML PREMIX IV PRN (08:33)
[2021-03-07] MEDS: PANTOPRAZOLE 40 MG TABLET PO SCH (09:14)
[2021-03-07] MEDS: LIPASE/PROTEASE/AMYLASE 4,200 UNITS CAPSULE PO SCH ×3 (09:15→18:22)
[2021-03-07 09:34] LABS: Bilirubin,Urine Negative (Negative); Blood, Urine Negative (Negative); Glucose,Urine (UA) Negative (Negative); Ketones,Urine Negative (Negative); Nitrite,Urine Positive (Negative); Protein,Urine Negative; RBC,Urine 3 /HPF (0-4); Urine Appearance CLEAR (Clear); Urine Color Yellow (Yellow); Urine Specific Gravity 1.009 (1.001-1.035); Urine Urobilinogen < 2.0 EU/DL (0.2-1.0)
[2021-03-07] MEDS: DILTIAZEM 60 MG TABLET PO SCH (23:22)
[2021-03-08] MEDS: ALBUTEROL/IPRATROPIUM 3 ML NEB RESP TX SCH ×4 (00:15→20:15)
[2021-03-08] MEDS: LIPASE/PROTEASE/AMYLASE 4,200 UNITS CAPSULE PO SCH ×3 (08:57→19:15)
[2021-03-08] MEDS ORDERED: busPIRone 5 MG TABLET PO SCH ×2 (09:00→22:00)
[2021-03-08] MEDS: SODIUM CHLORIDE 0.9% 1,000 ML IV SCH ×2 (10:53→15:16)
[2021-03-08] MEDS ORDERED: TUBERCULIN SKIN TEST 0.1 ML SYRINGE INTRADERM ONE (11:50)
[2021-03-08] MEDS ORDERED: BISACODYL 5 MG TABLET PO ONE (12:00)
[2021-03-08] MEDS: MEMANTINE 5 MG TABLET PO SCH (13:12)
[2021-03-08] MEDS: ERTAPENEM 1,000 MG in SODIUM CHLORIDE 0.9% 100 ML IV SCH (14:10)
[2021-03-08] MEDS: DILTIAZEM 60 MG TABLET PO SCH ×2 (14:10→22:48)
[2021-03-08] MEDS: SERTRALINE 100 MG TABLET PO SCH (14:12)
[2021-03-08] MEDS: PANTOPRAZOLE 40 MG TABLET PO SCH (14:12)
[2021-03-08] MEDS ORDERED: POLYETHYLENE GLYCOL POWDER 255 GM BOTTLE PO ONE (18:00)
[2021-03-08] MEDS: NYSTATIN POWDER 15 GM BOTTLE TOP SCH ×2 (19:15→22:49)
[2021-03-08] MEDS ORDERED: NYSTATIN POWDER 15 GM BOTTLE TOP SCH (21:00)
[2021-03-08] MEDS: busPIRone 5 MG TABLET PO SCH (22:48)
[2021-03-08] MEDS: DONEPEZIL 5 MG TABLET PO SCH (22:49)
[2021-03-09] MEDS: ALBUTEROL/IPRATROPIUM 3 ML NEB RESP TX SCH ×4 (01:41→19:30)
[2021-03-09 06:14] LABS: Basophils % 0.6 % (0.0-0.8); Eosinophils # 0.3 10*3/uL (0.0-0.87); Eosinophils % 3.9 % (0.00-10.9); Hematocrit 34.3 VOL% (35.7-47.0); Hemoglobin 11.2 GM/DL (12.0-16.0); Immature Granulocytes % 0.3 %; Immature Granulocytes Absolute 0.02 #; Lymphocytes # 1.9 10*3/uL (1.4-4.0); Lymphocytes % 26.1 % (21.3-54.2); Mean Corpuscular HGB Conc 32.7 GM/DL (32-36); Mean Corpuscular Volume 99.4 FL (87-102); Mean Platelet Volume 11.4 FL (9.6-12.0); Monocytes % 7.9 % (1.7-12.7); Neutrophils % 61.2 % (38.7-73.9); Platelet Count 212 T/CUMM (130-400); Red Blood Count 3.45 MC/CUMM (3.8-5.5); Red Cell Distribution Width 13.9 % (9.3-17.3); White Blood Count 7.1 T/CUMM (4-12)
[2021-03-09 06:41] LABS: Calcium 8.9 MG/DL (8.5-10.1); Potassium 3.7 MMOL/L (3.5-5.1)
[2021-03-09] MEDS: SODIUM CHLORIDE 0.9% 1,000 ML IV SCH ×2 (07:52→13:00)
[2021-03-09] MEDS: LACTATED RINGERS 1,000 ML IV SCH (07:52)
[2021-03-09] MEDS: DILTIAZEM 60 MG TABLET PO SCH ×2 (08:49→21:07)
[2021-03-09] MEDS: NYSTATIN POWDER 15 GM BOTTLE TOP SCH ×2 (08:49→21:10)
[2021-03-09] MEDS ORDERED: propofoL 200 MG/20 ML VIAL IV ONE (12:01)
[2021-03-09] MEDS ORDERED: LIDOCAINE 2% 5 ML VIAL ONE (12:01)
[2021-03-09] MEDS: LIPASE/PROTEASE/AMYLASE 4,200 UNITS CAPSULE PO SCH ×3 (12:45→17:36)
[2021-03-09] MEDS: busPIRone 5 MG TABLET PO SCH ×2 (13:57→21:08)
[2021-03-09] MEDS: PANTOPRAZOLE 40 MG TABLET PO SCH (13:58)
[2021-03-09] MEDS: MEMANTINE 5 MG TABLET PO SCH (13:58)
[2021-03-09] MEDS: SERTRALINE 100 MG TABLET PO SCH (13:59)
[2021-03-09] MEDS: CHOLECALCIFEROL 1,000 UNIT TABLET PO SCH (13:59)
[2021-03-09] MEDS: ERTAPENEM 1,000 MG in SODIUM CHLORIDE 0.9% 100 ML IV SCH (13:59)
[2021-03-09] MEDS: cephALEXin 250 MG CAPSULE PO SCH (21:08)
[2021-03-09] MEDS: DONEPEZIL 5 MG TABLET PO SCH (21:08)
[2021-03-09] MEDS: CHOLESTYRAMINE 4 GM PACK PO SCH (21:35)
[2021-03-10] MEDS: ALBUTEROL/IPRATROPIUM 3 ML NEB RESP TX SCH ×4 (00:35→20:31)
[2021-03-10 05:07] LABS: Basophils % 0.4 % (0.0-0.8); Eosinophils # 0.3 10*3/uL (0.0-0.87); Eosinophils % 3.4 % (0.00-10.9); Hematocrit 33.2 VOL% (35.7-47.0); Hemoglobin 10.7 GM/DL (12.0-16.0); Immature Granulocytes % 0.4 %; Immature Granulocytes Absolute 0.03 #; Lymphocytes # 1.8 10*3/uL (1.4-4.0); Lymphocytes % 20.7 % (21.3-54.2); Mean Corpuscular HGB Conc 32.2 GM/DL (32-36); Mean Corpuscular Volume 99.1 FL (87-102); Mean Platelet Volume 11.1 FL (9.6-12.0); Monocytes % 9.4 % (1.7-12.7); Neutrophils % 65.7 % (38.7-73.9); Platelet Count 175 T/CUMM (130-400); Red Blood Count 3.35 MC/CUMM (3.8-5.5); Red Cell Distribution Width 13.8 % (9.3-17.3); White Blood Count 8.5 T/CUMM (4-12)
[2021-03-10 05:58] LABS: Calcium 8.9 MG/DL (8.5-10.1); Potassium 3.9 MMOL/L (3.5-5.1)
[2021-03-10 06:03] LABS: Folate 8.07 NG/ML (5.38-24.0); Vitamin B12 558 PG/ML (211-911)
[2021-03-10 06:09] LABS: Ferritin 38.4 ng/ml (8-252); Thyroid Stimulating Hormone 2.05 uIU/ml (0.358-3.74)
[2021-03-10 06:23] LABS: Sedimentation Rate-Westergren 46 MM/HR (0-30)
[2021-03-10] MEDS: LACTATED RINGERS 1,000 ML IV SCH (07:06)
[2021-03-10] MEDS: SODIUM CHLORIDE 0.9% 1,000 ML IV SCH (07:06)
[2021-03-10 09:49] LABS: Hemoglobin A1 (Alkaline) 96.9 % (96.5-98.5); Hemoglobin A2 (Alkaline) 3.1 % (1.5-3.5)
[2021-03-10] MEDS: cephALEXin 250 MG CAPSULE PO SCH (10:28)
[2021-03-10] MEDS: busPIRone 5 MG TABLET PO SCH ×2 (10:29→20:49)
[2021-03-10] MEDS: DILTIAZEM 60 MG TABLET PO SCH ×2 (10:29→20:48)
[2021-03-10] MEDS: CHOLECALCIFEROL 1,000 UNIT TABLET PO SCH (10:29)
[2021-03-10] MEDS: SERTRALINE 100 MG TABLET PO SCH (10:29)
[2021-03-10] MEDS: CHOLESTYRAMINE 4 GM PACK PO SCH (10:30)
[2021-03-10] MEDS: PANTOPRAZOLE 40 MG TABLET PO SCH (10:30)
[2021-03-10] MEDS: MEMANTINE 5 MG TABLET PO SCH (10:30)
[2021-03-10] MEDS: NYSTATIN POWDER 15 GM BOTTLE TOP SCH ×2 (10:30→20:51)
[2021-03-10] MEDS ORDERED: atenoloL 50 MG TABLET PO ONE (12:26)
[2021-03-10] MEDS: FLUCONAZOLE 100 MG TABLET PO SCH (13:08)
[2021-03-10 14:00] LABS: Chlamydia trachomatis Not Detected (NotDetected); Class A beta Lactamase Not Detected (NotDetected); Clostridium difficile A & B Not Detected (NotDetected); E coli (ETEC) O157 Not Detected (NotDetected); Enterovirus D Not Detected (NotDetected); Pseudomonas aeruginosa Not Detected (NotDetected); Rotavirus A & B Not Detected (NotDetected); Salmonella enterica Not Detected (NotDetected); Yersinia enterocolitica Not Detected (NotDetected); mecA-Methicillin Resistance Ge Not Detected (NotDetected)
[2021-03-10] MEDS: DONEPEZIL 5 MG TABLET PO SCH (20:49)
[2021-03-10] MEDS ORDERED: COLESTIPOL 1 GM TABLET PO SCH (22:00)
[2021-03-11] MEDS: ALBUTEROL/IPRATROPIUM 3 ML NEB RESP TX SCH ×2 (00:44→07:05)
[2021-03-11 06:02] LABS: Basophils % 0.6 % (0.0-0.8); Eosinophils # 0.4 10*3/uL (0.0-0.87); Eosinophils % 6.1 % (0.00-10.9); Hematocrit 32.6 VOL% (35.7-47.0); Hemoglobin 10.9 GM/DL (12.0-16.0); Immature Granulocytes % 0.4 %; Immature Granulocytes Absolute 0.03 #; Lymphocytes # 1.9 10*3/uL (1.4-4.0); Lymphocytes % 27.8 % (21.3-54.2); Mean Corpuscular HGB Conc 33.4 GM/DL (32-36); Mean Corpuscular Volume 96.7 FL (87-102); Mean Platelet Volume 11.1 FL (9.6-12.0); Monocytes % 9.5 % (1.7-12.7); Neutrophils % 55.6 % (38.7-73.9); Platelet Count 171 T/CUMM (130-400); Red Blood Count 3.37 MC/CUMM (3.8-5.5); Red Cell Distribution Width 13.9 % (9.3-17.3); White Blood Count 6.7 T/CUMM (4-12)
[2021-03-11 06:17] LABS: Calcium 8.8 MG/DL (8.5-10.1); Osmolality,Calculated 285.3 MOS/KG (273-304); Potassium 3.8 MMOL/L (3.5-5.1)
[2021-03-11] MEDS ORDERED: atenoloL 50 MG TABLET PO SCH (09:00)
[2021-03-11] MEDS: DILTIAZEM 60 MG TABLET PO SCH (09:05)
[2021-03-11] MEDS: DICYCLOMINE 10 MG CAPSULE PO SCH ×2 (09:05→13:12)
[2021-03-11] MEDS: PANTOPRAZOLE 40 MG TABLET PO SCH (09:06)
[2021-03-11] MEDS: MEMANTINE 5 MG TABLET PO SCH (09:06)
[2021-03-11] MEDS: FLUCONAZOLE 100 MG TABLET PO SCH (09:06)
[2021-03-11] MEDS: busPIRone 5 MG TABLET PO SCH (09:06)
[2021-03-11] MEDS: CHOLECALCIFEROL 1,000 UNIT TABLET PO SCH (09:06)
[2021-03-11] MEDS: SERTRALINE 100 MG TABLET PO SCH (09:06)
[2021-03-11] MEDS: NYSTATIN POWDER 15 GM BOTTLE TOP SCH (09:11)
[2021-03-11] MEDS ORDERED: COLESTIPOL 1 GM TABLET PO PRN (09:56)
[2021-03-11 11:21] VITALS: BP 145/75
== END 2021-03-11 13:50 | disposition home health service (06) | DRG 391 ==
LOC: EDBD → EDUNIT# → N.ED 17:09 → N.EDINP 20:48 → N.4E 22:33
PROVIDERS: ADMIT Hospitalist; ATTEND Hospitalist

== ENCOUNTER 2021-10-08 16:26 | Inpatient (IN) ==
[2021-10-08] MEDS ORDERED: ALBUTEROL 2.5 MG/3 ML NEB RESP TX STA (17:36)
[2021-10-08] MEDS ORDERED: DILTIAZEM 50 MG/10 ML VIAL IV STA (17:36)
[2021-10-08] MEDS ORDERED: DEXAMETHASONE 4 MG/1 ML VIAL IV STA (17:36)
[2021-10-08 18:54] LABS: Basophils % 0.4 % (0.0-0.8); Hematocrit 36.6 VOL% (35.7-47.0); Hemoglobin 11.3 GM/DL (12.0-16.0); Immature Granulocytes % 0.9 %; Immature Granulocytes Absolute 0.04 #; Lymphocytes # 0.9 10*3/uL (1.4-4.0); Lymphocytes % 20.5 % (21.3-54.2); Mean Corpuscular HGB Conc 30.9 GM/DL (32-36); Mean Corpuscular Volume 98.9 FL (87-102); Mean Platelet Volume 10.3 FL (9.6-12.0); Monocytes % 9.4 % (1.7-12.7); Neutrophils % 68.8 % (38.7-73.9); Platelet Count 162 T/CUMM (130-400); Red Cell Distribution Width 14.2 % (9.3-17.3); White Blood Count 4.6 T/CUMM (4-12)
[2021-10-08 19:17] LABS: Alanine Aminotransferase 19 U/L (13-56); Albumin 3.3 G/DL (3.4-5.0); Alkaline Phosphatase 99 U/L (45-117); Aspartate Amino Transferase 26 U/L (0-37); Blood Urea Nitrogen 33 MG/DL (7-18); Calcium 8.9 MG/DL (8.5-10.1); Carbon Dioxide 27 MMOL/L (21-32); Glucose 116 MG/DL (74-106); Potassium 3.8 MMOL/L (3.5-5.1); Sodium 143 MMOL/L (136-145); Total Protein 7.7 G/DL (6.4-8.2)
[2021-10-08 19:19] LABS: Estimated Glom Filtration Rate 0 ML/MIN
[2021-10-08] MEDS ORDERED: cefTRIAXone 1,000 MG in SODIUM CHLORIDE 0.9% 100 ML IV STA (20:06)
[2021-10-08] MEDS ORDERED: AZITHROMYCIN INJ 500 MG in SODIUM CHLORIDE 0.9% 250 ML IV STA (20:06)
[2021-10-08] MEDS ORDERED: GLUCAGON 1 MG VIAL IM PRN (20:33)
[2021-10-08] MEDS ORDERED: hydrALAZINE 20 MG/1 ML VIAL IV PRN (20:33)
[2021-10-08] MEDS ORDERED: ONDANSETRON 4 MG/2 ML VIAL IV PRN (20:33)
[2021-10-08] MEDS ORDERED: DEXTROSE 50% 25 GM/50 ML SYRINGE IV PRN (20:33)
[2021-10-08 20:40] LABS: Bacteria,Urine Occasional /HPF (Few); Bilirubin,Urine Negative (Negative); Blood, Urine Moderate mg/dL (Negative); Glucose,Urine (UA) Negative (Negative); Hyaline Casts,Urine 4 /LPF (0-3); Ketones,Urine Negative (Negative); Mucus,Urine Occasional /LPF (Occasional); Nitrite,Urine Positive (Negative); Protein,Urine 30 MG/DL; RBC,Urine 1 /HPF (0-4); Squamous Epithelial Cell,Urine Occasional /HPF (0-10); Urine Appearance CLEAR (Clear); Urine Color Yellow (Yellow); Urine Specific Gravity 1.016 (1.001-1.035); Urine Urobilinogen < 2.0 EU/DL (<2.0)
[2021-10-08] MEDS: methylPREDNISolone SOD SUC 40 MG/1 ML VIAL IV SCH (22:33)
[2021-10-09] MEDS: PIPERACILLIN/TAZOBACTAM 3,375 MG in SODIUM CHLORIDE 0.9% 100 ML IV SCH ×3 (00:54→18:55)
[2021-10-09] MEDS: ALBUTEROL/IPRATROPIUM 3 ML NEB RESP TX SCH ×4 (00:54→20:30)
[2021-10-09 00:55] LABS: Basophils % 0.3 % (0.0-0.8); Hematocrit 33.2 VOL% (35.7-47.0); Hemoglobin 10.3 GM/DL (12.0-16.0); Immature Granulocytes % 1.5 %; Immature Granulocytes Absolute 0.05 #; Lymphocytes # 0.4 10*3/uL (1.4-4.0); Lymphocytes % 10.8 % (21.3-54.2); Mean Corpuscular Volume 98.5 FL (87-102); Mean Platelet Volume 10.5 FL (9.6-12.0); Monocytes % 1.8 % (1.7-12.7); Neutrophils % 85.6 % (38.7-73.9); Platelet Count 150 T/CUMM (130-400); Red Blood Count 3.37 MC/CUMM (3.8-5.5); Red Cell Distribution Width 14.2 % (9.3-17.3); White Blood Count 3.4 T/CUMM (4-12)
[2021-10-09 01:30] LABS: Calcium 8.6 MG/DL (8.5-10.1); Osmolality,Calculated 290.3 MOS/KG (273-304); Potassium 3.9 MMOL/L (3.5-5.1); Risk Ratio 2.05; Thyroid Stimulating Hormone 0.251 uIU/ml (0.358-3.74); VLDL Cholesterol 9.4 MG/DL
[2021-10-09 03:20] LABS: Hypochromia 1+; Ovalocytes 1+; Platelet Estimate Normal
[2021-10-09 03:21] LABS: Microcytosis 1+
[2021-10-09] MEDS: VANCOMYCIN INJ 1,000 MG in SODIUM CHLORIDE 0.9% 250 ML IV SCH (04:40)
[2021-10-09] MEDS ORDERED: MAGNESIUM SULF RIDER 2 GM/50 ML PREMIX IV ONE (07:36)
[2021-10-09 08:05] LABS: Free T4 (Free Thyroxine) 0.89 NG/DL (0.76-1.46)
[2021-10-09] MEDS: APIXABAN 2.5 MG TABLET PO SCH ×2 (09:44→21:27)
[2021-10-09] MEDS: ACETAMINOPHEN 325 MG TABLET PO PRN ×2 (09:45→21:26)
[2021-10-09] MEDS: PANTOPRAZOLE 40 MG TABLET PO SCH (09:45)
[2021-10-09] MEDS: OSELTAMIVIR 30 MG CAPSULE PO SCH (09:46)
[2021-10-09] MEDS: LACTATED RINGERS 1,000 ML IV SCH ×2 (09:50→19:04)
[2021-10-09] MEDS: atenoloL 50 MG TABLET PO SCH (09:50)
[2021-10-09] MEDS: DILTIAZEM 60 MG TABLET PO SCH ×2 (09:51→21:25)
[2021-10-09] MEDS: methylPREDNISolone SOD SUC 40 MG/1 ML VIAL IV SCH ×2 (10:07→21:27)
[2021-10-09] MEDS: BUTALBITAL/ACETAMIN/CAFFEINE 50-325-40 MG TABLET PO PRN ×2 (15:42→21:34)
[2021-10-09] MEDS ORDERED: AZITHROMYCIN INJ 500 MG in SODIUM CHLORIDE 0.9% 250 ML IV SCH (21:00)
[2021-10-10] MEDS: PIPERACILLIN/TAZOBACTAM 3,375 MG in SODIUM CHLORIDE 0.9% 100 ML IV SCH ×2 (01:22→10:40)
[2021-10-10] MEDS: ALBUTEROL/IPRATROPIUM 3 ML NEB RESP TX SCH ×4 (01:38→19:06)
[2021-10-10] MEDS: VANCOMYCIN INJ 1,000 MG in SODIUM CHLORIDE 0.9% 250 ML IV SCH (06:26)
[2021-10-10 07:47] LABS: Hematocrit 34.2 VOL% (35.7-47.0); Hemoglobin 10.9 GM/DL (12.0-16.0); Immature Granulocytes % 0.6 %; Immature Granulocytes Absolute 0.04 #; Lymphocytes # 0.5 10*3/uL (1.4-4.0); Lymphocytes % 8.2 % (21.3-54.2); Mean Corpuscular HGB Conc 31.9 GM/DL (32-36); Mean Corpuscular Volume 97.2 FL (87-102); Mean Platelet Volume 10.6 FL (9.6-12.0); Monocytes % 3.3 % (1.7-12.7); Neutrophils % 87.9 % (38.7-73.9); Platelet Count 149 T/CUMM (130-400); Red Blood Count 3.52 MC/CUMM (3.8-5.5); Red Cell Distribution Width 13.9 % (9.3-17.3); White Blood Count 6.6 T/CUMM (4-12)
[2021-10-10 08:09] LABS: Calcium 8.3 MG/DL (8.5-10.1); Osmolality,Calculated 282.8 MOS/KG (273-304); Potassium 3.2 MMOL/L (3.5-5.1)
[2021-10-10] MEDS: APIXABAN 2.5 MG TABLET PO SCH ×2 (09:09→21:14)
[2021-10-10] MEDS: MEMANTINE 5 MG TABLET PO SCH (09:09)
[2021-10-10] MEDS: SERTRALINE 100 MG TABLET PO SCH (09:09)
[2021-10-10] MEDS: atenoloL 50 MG TABLET PO SCH (09:09)
[2021-10-10] MEDS: BUTALBITAL/ACETAMIN/CAFFEINE 50-325-40 MG TABLET PO PRN (09:09)
[2021-10-10] MEDS: DILTIAZEM 60 MG TABLET PO SCH ×2 (09:09→21:13)
[2021-10-10] MEDS: PANTOPRAZOLE 40 MG TABLET PO SCH (09:09)
[2021-10-10] MEDS: methylPREDNISolone SOD SUC 40 MG/1 ML VIAL IV SCH ×2 (09:10→21:14)
[2021-10-10] MEDS: OSELTAMIVIR 30 MG CAPSULE PO SCH (10:30)
[2021-10-10] MEDS: LACTATED RINGERS 1,000 ML IV SCH (10:41)
[2021-10-10] MEDS ORDERED: POTASSIUM CHLORIDE 20 MEQ TABLET PO ONE (11:04)
[2021-10-10] MEDS: hydrALAZINE 25 MG TABLET PO SCH (21:13)
[2021-10-10] MEDS: DONEPEZIL 5 MG TABLET PO SCH (21:14)
[2021-10-11] MEDS: ALBUTEROL/IPRATROPIUM 3 ML NEB RESP TX SCH ×4 (00:55→19:28)
[2021-10-11 07:11] LABS: Hemoglobin 12.1 GM/DL (12.0-16.0); Immature Granulocytes % 0.6 %; Immature Granulocytes Absolute 0.04 #; Lymphocytes # 0.6 10*3/uL (1.4-4.0); Lymphocytes % 9.7 % (21.3-54.2); Mean Corpuscular HGB Conc 31.8 GM/DL (32-36); Mean Corpuscular Volume 95.7 FL (87-102); Mean Platelet Volume 10.9 FL (9.6-12.0); Monocytes % 3.8 % (1.7-12.7); Neutrophils % 85.9 % (38.7-73.9); Platelet Count 171 T/CUMM (130-400); Red Blood Count 3.97 MC/CUMM (3.8-5.5); White Blood Count 6.4 T/CUMM (4-12)
[2021-10-11 07:28] LABS: Calcium 8.7 MG/DL (8.5-10.1); Osmolality,Calculated 289.4 MOS/KG (273-304); Potassium 3.6 MMOL/L (3.5-5.1)
[2021-10-11] MEDS: APIXABAN 2.5 MG TABLET PO SCH ×2 (08:16→21:10)
[2021-10-11] MEDS: SERTRALINE 100 MG TABLET PO SCH (08:16)
[2021-10-11] MEDS: MEMANTINE 5 MG TABLET PO SCH (08:16)
[2021-10-11] MEDS: PANTOPRAZOLE 40 MG TABLET PO SCH (08:16)
[2021-10-11] MEDS: OSELTAMIVIR 30 MG CAPSULE PO SCH (08:16)
[2021-10-11] MEDS: hydrALAZINE 25 MG TABLET PO SCH (08:17)
[2021-10-11] MEDS: DILTIAZEM 60 MG TABLET PO SCH ×2 (08:17→21:09)
[2021-10-11] MEDS: atenoloL 50 MG TABLET PO SCH (08:19)
[2021-10-11] MEDS: MEROPENEM 500 MG in SODIUM CHLORIDE 0.9% 100 ML IV SCH ×2 (10:10→21:10)
[2021-10-11] MEDS: CHLORTHALIDONE 25 MG TABLET PO SCH (10:10)
[2021-10-11] MEDS: methylPREDNISolone SOD SUC 40 MG/1 ML VIAL IV SCH (10:11)
[2021-10-11] MEDS: ACETYLCYSTEINE 20% 800 MG/4 ML VIAL RESP TX SCH (13:38)
[2021-10-11] MEDS: BUTALBITAL/ACETAMIN/CAFFEINE 50-325-40 MG TABLET PO PRN (15:35)
[2021-10-11] MEDS: DONEPEZIL 5 MG TABLET PO SCH (21:10)
[2021-10-12] MEDS: BUDESONIDE 0.5 MG/2 ML NEB RESP TX SCH ×2 (00:56→07:40)
[2021-10-12] MEDS: ACETYLCYSTEINE 20% 800 MG/4 ML VIAL RESP TX SCH ×2 (00:56→07:40)
[2021-10-12] MEDS: ALBUTEROL/IPRATROPIUM 3 ML NEB RESP TX SCH ×3 (00:56→13:55)
[2021-10-12] MEDS: MEROPENEM 500 MG in SODIUM CHLORIDE 0.9% 100 ML IV SCH ×2 (04:21→12:24)
[2021-10-12 06:50] LABS: Basophils % 0.1 % (0.0-0.8); Hematocrit 37.8 VOL% (35.7-47.0); Hemoglobin 12.3 GM/DL (12.0-16.0); Immature Granulocytes % 1.3 %; Immature Granulocytes Absolute 0.09 #; Lymphocytes # 1.1 10*3/uL (1.4-4.0); Lymphocytes % 15.6 % (21.3-54.2); Mean Corpuscular HGB Conc 32.5 GM/DL (32-36); Mean Corpuscular Volume 95.5 FL (87-102); Monocytes % 9.7 % (1.7-12.7); Neutrophils % 73.3 % (38.7-73.9); Platelet Count 155 T/CUMM (130-400); Red Blood Count 3.96 MC/CUMM (3.8-5.5); Red Cell Distribution Width 13.8 % (9.3-17.3); White Blood Count 6.8 T/CUMM (4-12)
[2021-10-12 07:17] LABS: Calcium 8.6 MG/DL (8.5-10.1); Osmolality,Calculated 295.1 MOS/KG (273-304); Potassium 3.3 MMOL/L (3.5-5.1)
[2021-10-12] MEDS ORDERED: methylPREDNISolone SOD SUC 40 MG/1 ML VIAL IV SCH (09:00)
[2021-10-12] MEDS: DILTIAZEM 60 MG TABLET PO SCH (09:01)
[2021-10-12] MEDS: OSELTAMIVIR 30 MG CAPSULE PO SCH (09:01)
[2021-10-12] MEDS: PANTOPRAZOLE 40 MG TABLET PO SCH (09:01)
[2021-10-12] MEDS: SERTRALINE 100 MG TABLET PO SCH (09:01)
[2021-10-12] MEDS: MEMANTINE 5 MG TABLET PO SCH (09:01)
[2021-10-12] MEDS: atenoloL 50 MG TABLET PO SCH (09:01)
[2021-10-12] MEDS: APIXABAN 2.5 MG TABLET PO SCH (09:01)
[2021-10-12] MEDS: CHLORTHALIDONE 25 MG TABLET PO SCH (09:01)
[2021-10-12] MEDS ORDERED: POTASSIUM CHLORIDE 20 MEQ TABLET PO ONE (10:38)
[2021-10-12 11:42] VITALS: BP 150/86
== END 2021-10-12 15:30 | disposition hospice, home (50) | DRG 190 ==
LOC: EDBD → EDUNIT# → N.ED 16:26 → N.EDINP 20:33 → SUATTDRO 20:33 → N.EDINP 23:15 → N.TELES 10-09 00:21
PROVIDERS: ADMIT Hospitalist; ATTEND Hospitalist

== ENCOUNTER 2022-07-30 19:42 | Inpatient (IN) ==
[2022-07-30 20:40] LABS: Basophils % 0.3 % (0.0-0.8); Eosinophils # 0.1 10*3/uL (0.0-0.87); Eosinophils % 0.7 % (0.00-10.9); Hematocrit 36.2 VOL% (35.7-47.0); Hemoglobin 11.4 GM/DL (12.0-16.0); Immature Granulocytes % 0.6 %; Immature Granulocytes Absolute 0.05 #; Lymphocytes # 0.8 10*3/uL (1.4-4.0); Lymphocytes % 8.6 % (21.3-54.2); Mean Corpuscular HGB Conc 31.5 GM/DL (32-36); Mean Corpuscular Volume 100.6 FL (87-102); Mean Platelet Volume 10.6 FL (9.6-12.0); Monocytes # 0.5 10*3/uL (0.11-0.8); Monocytes % 5.7 % (1.7-12.7); Neutrophils % 84.1 % (38.7-73.9); Platelet Count 146 T/CUMM (130-400); Red Cell Distribution Width 13.2 % (9.3-17.3); White Blood Count 8.7 T/CUMM (4-12)
[2022-07-30] MEDS ORDERED: SODIUM CHLORIDE 0.9% 1,000 ML IV STA (20:40)
[2022-07-30 20:52] LABS: INR 1.1; PT Patient Result 11.6 SECS (10.1-12.1); Partial Thromboplastin Time 28.6 SECS (23.7-32.9)
[2022-07-30 20:58] LABS: Albumin 3.4 G/DL (3.4-5.0); Bilirubin,Total 0.6 MG/DL (0.20-1.00); Osmolality,Calculated 301.8 MOS/KG (273-304); Potassium 4.2 MMOL/L (3.5-5.1); Total Protein 6.7 G/DL (6.4-8.2)
[2022-07-30 21:13] LABS: Bacteria,Urine Many /HPF (Few); Bilirubin,Urine Negative (Negative); Blood, Urine Moderate mg/dL (Negative); Glucose,Urine (UA) Negative (Negative); Ketones,Urine Negative (Negative); Mucus,Urine Occasional /LPF (Occasional); Nitrite,Urine Negative (Negative); Protein,Urine 30 mg/dL (Negative); RBC,Urine 7 /HPF (0-4); Squamous Epithelial Cell,Urine Occasional /HPF (0-10); Urine Appearance Slightly Hazy (Clear); Urine Color Yellow (Yellow); Urine Specific Gravity 1.013 (1.001-1.035); Urine Urobilinogen < 2.0 eU/dL (<2.0)
[2022-07-30] MEDS ORDERED: cefTRIAXone 1,000 MG in SODIUM CHLORIDE 0.9% 100 ML IV STA (21:32)
[2022-07-30] MEDS ORDERED: ONDANSETRON 4 MG/2 ML VIAL IV PRN (22:15)
[2022-07-30] MEDS ORDERED: hydrALAZINE 20 MG/1 ML VIAL IV PRN (22:15)
[2022-07-30] MEDS ORDERED: POTASSIUM CHLORIDE RIDER 10 MEQ/100 ML PREMIX IV PRN (22:30)
[2022-07-30] MEDS ORDERED: MAGNESIUM SULF RIDER 4 GM/100 ML PREMIX IV PRN (22:30)
[2022-07-30] MEDS ORDERED: MAGNESIUM SULF RIDER 2 GM/50 ML PREMIX IV PRN (22:30)
[2022-07-31] MEDS ORDERED: LORazepam 2 MG/1 ML VIAL IV ONE (00:38)
[2022-07-31] MEDS ORDERED: LORazepam 2 MG/1 ML VIAL IV PRN (01:00)
[2022-07-31] MEDS: ACETAMINOPHEN 650 MG SUPP RECTAL PRN ×3 (01:03→23:12)
[2022-07-31] MEDS: PIPERACILLIN/TAZOBACTAM 3,375 MG in SODIUM CHLORIDE 0.9% 100 ML IV SCH ×3 (01:30→22:58)
[2022-07-31] MEDS ORDERED: ASPIRIN 300 MG SUPP RECTAL ONE ×2 (02:35→18:06)
[2022-07-31 06:18] LABS: Basophils % 0.2 % (0.0-0.8); Eosinophils % 0.1 % (0.00-10.9); Hematocrit 35.2 VOL% (35.7-47.0); Hemoglobin 11.2 GM/DL (12.0-16.0); Immature Granulocytes % 0.4 %; Immature Granulocytes Absolute 0.04 #; Lymphocytes # 0.9 10*3/uL (1.4-4.0); Lymphocytes % 8.5 % (21.3-54.2); Mean Corpuscular HGB Conc 31.8 GM/DL (32-36); Mean Corpuscular Volume 99.2 FL (87-102); Mean Platelet Volume 11.3 FL (9.6-12.0); Monocytes # 0.9 10*3/uL (0.11-0.8); Monocytes % 9.2 % (1.7-12.7); Neutrophils % 81.6 % (38.7-73.9); Red Blood Count 3.55 MC/CUMM (3.8-5.5); Red Cell Distribution Width 13.5 % (9.3-17.3)
[2022-07-31 06:19] LABS: Platelet Count 108 T/CUMM (130-400)
[2022-07-31 06:25] LABS: Calcium 8.7 MG/DL (8.5-10.1); Osmolality,Calculated 303.4 MOS/KG (273-304); Potassium 3.8 MMOL/L (3.5-5.1)
[2022-07-31] MEDS: PANTOPRAZOLE 40 MG VIAL IV SCH (08:56)
[2022-07-31] MEDS ORDERED: FUROSEMIDE 40 MG/4 ML VIAL IV SCH (09:00)
[2022-07-31] MEDS ORDERED: ENOXAPARIN 40 MG/0.4 ML SYRINGE SUBCUT SCH (09:00)
[2022-07-31] MEDS ORDERED: SODIUM CHLORIDE 0.9% 250 ML IV ONE (09:41)
[2022-07-31] MEDS: DESITIN 4OZ/NYSTATIN 15 GRAM MIXTURE PASTE TOP SCH ×2 (15:12→20:59)
[2022-08-01] MEDS: ACETAMINOPHEN 650 MG SUPP RECTAL PRN ×3 (05:43→23:32)
[2022-08-01 05:56] LABS: Basophils % 0.4 % (0.0-0.8); Eosinophils % 0.2 % (0.00-10.9); Hematocrit 34.3 VOL% (35.7-47.0); Immature Granulocytes % 0.7 %; Immature Granulocytes Absolute 0.08 #; Lymphocytes # 1.3 10*3/uL (1.4-4.0); Lymphocytes % 11.6 % (21.3-54.2); Mean Corpuscular HGB Conc 32.1 GM/DL (32-36); Mean Corpuscular Volume 99.7 FL (87-102); Mean Platelet Volume 11.4 FL (9.6-12.0); Monocytes # 0.8 10*3/uL (0.11-0.8); Monocytes % 7.2 % (1.7-12.7); Neutrophils % 79.9 % (38.7-73.9); Platelet Count 111 T/CUMM (130-400); Red Blood Count 3.44 MC/CUMM (3.8-5.5); Red Cell Distribution Width 13.5 % (9.3-17.3)
[2022-08-01] MEDS: PIPERACILLIN/TAZOBACTAM 3,375 MG in SODIUM CHLORIDE 0.9% 100 ML IV SCH ×3 (06:14→22:40)
[2022-08-01 06:21] LABS: Risk Ratio 2.75; VLDL Cholesterol 16.4 MG/DL
[2022-08-01 06:32] LABS: Bilirubin,Total 0.6 MG/DL (0.20-1.00); Osmolality,Calculated 307.1 MOS/KG (273-304); Potassium 3.1 MMOL/L (3.5-5.1)
[2022-08-01] MEDS ORDERED: VANCOMYCIN INJ 500 MG in SODIUM CHLORIDE 0.9% 100 ML IV ONE (08:34)
[2022-08-01] MEDS ORDERED: ASPIRIN 300 MG SUPP RECTAL PRN (09:00)
[2022-08-01] MEDS ORDERED: ENOXAPARIN 80 MG/0.8 ML SYRINGE SUBCUT SCH (09:00)
[2022-08-01] MEDS: DESITIN 4OZ/NYSTATIN 15 GRAM MIXTURE PASTE TOP SCH ×2 (09:00→20:33)
[2022-08-01] MEDS ORDERED: HEPARIN 5,000 UNIT/1 ML VIAL SUBCUT SCH (09:00)
[2022-08-01] MEDS: PANTOPRAZOLE 40 MG VIAL IV SCH (09:07)
[2022-08-01] MEDS ORDERED: VANCOMYCIN INJ 1,000 MG in SODIUM CHLORIDE 0.9% 250 ML IV ONE (09:30)
[2022-08-01] MEDS ORDERED: VANCOMYCIN INJ 750 MG in SODIUM CHLORIDE 0.9% 250 ML IV PRN (09:32)
[2022-08-01] MEDS: DEXT 5% NACL 0.9% KCL 40 MEQ 40 MEQ/1,000 ML BAG IV SCH (09:43)
[2022-08-01] MEDS: oxyCODONE/ACETAMINOPHEN 5-325 MG TABLET PO SCH ×3 (13:05→20:30)
[2022-08-01] MEDS: DICYCLOMINE 10 MG CAPSULE PO SCH (20:30)
[2022-08-02 05:23] LABS: Basophils # 0.1 10*3/uL (0.0-0.2); Basophils % 0.5 % (0.0-0.8); Eosinophils # 0.2 10*3/uL (0.0-0.87); Eosinophils % 1.8 % (0.00-10.9); Hematocrit 31.3 VOL% (35.7-47.0); Hemoglobin 10.1 GM/DL (12.0-16.0); Immature Granulocytes % 0.5 %; Immature Granulocytes Absolute 0.05 #; Lymphocytes # 1.7 10*3/uL (1.4-4.0); Lymphocytes % 18.7 % (21.3-54.2); Mean Corpuscular HGB Conc 32.3 GM/DL (32-36); Mean Platelet Volume 10.6 FL (9.6-12.0); Monocytes # 0.7 10*3/uL (0.11-0.8); Monocytes % 8.1 % (1.7-12.7); Neutrophils % 70.4 % (38.7-73.9); Platelet Count 100 T/CUMM (130-400); Red Blood Count 3.13 MC/CUMM (3.8-5.5); Red Cell Distribution Width 13.4 % (9.3-17.3); White Blood Count 9.1 T/CUMM (4-12)
[2022-08-02 05:50] LABS: Albumin 2.6 G/DL (3.4-5.0); Bilirubin,Total 0.4 MG/DL (0.20-1.00); Calcium 8.3 MG/DL (8.5-10.1); Osmolality,Calculated 310.7 MOS/KG (273-304); Potassium 3.4 MMOL/L (3.5-5.1); Total Protein 6.3 G/DL (6.4-8.2)
[2022-08-02] MEDS: DEXT 5% NACL 0.9% KCL 40 MEQ 40 MEQ/1,000 ML BAG IV SCH (06:00)
[2022-08-02] MEDS: PIPERACILLIN/TAZOBACTAM 3,375 MG in SODIUM CHLORIDE 0.9% 100 ML IV SCH ×2 (06:01→16:19)
[2022-08-02] MEDS: DICYCLOMINE 10 MG CAPSULE PO SCH ×4 (08:28→20:56)
[2022-08-02] MEDS: oxyCODONE/ACETAMINOPHEN 5-325 MG TABLET PO SCH ×3 (08:29→20:57)
[2022-08-02] MEDS: PANTOPRAZOLE 40 MG VIAL IV SCH (08:33)
[2022-08-02] MEDS: DESITIN 4OZ/NYSTATIN 15 GRAM MIXTURE PASTE TOP SCH ×2 (08:33→20:58)
[2022-08-02] MEDS ORDERED: POTASSIUM CHLORIDE 20 MEQ TABLET PO ONE (09:30)
[2022-08-02] MEDS: VANCOMYCIN INJ 1,000 MG in SODIUM CHLORIDE 0.9% 250 ML IV SCH (12:30)
[2022-08-02] MEDS: levETIRAcetam 500 MG TABLET PO SCH ×2 (12:32→20:57)
[2022-08-02] MEDS: LOPERAMIDE 2 MG CAPSULE PO PRN (18:40)
[2022-08-03] MEDS: PIPERACILLIN/TAZOBACTAM 3,375 MG in SODIUM CHLORIDE 0.9% 100 ML IV SCH ×2 (01:18→10:37)
[2022-08-03 09:08] LABS: Albumin 2.6 G/DL (3.4-5.0); Bilirubin,Total 0.5 MG/DL (0.20-1.00); Calcium 8.4 MG/DL (8.5-10.1); Osmolality,Calculated 294.6 MOS/KG (273-304); Total Protein 5.8 G/DL (6.4-8.2)
[2022-08-03 09:59] LABS: Basophils % 0.5 % (0.0-0.8); Eosinophils # 0.2 10*3/uL (0.0-0.87); Eosinophils % 3.4 % (0.00-10.9); Hematocrit 33.8 VOL% (35.7-47.0); Hemoglobin 10.7 GM/DL (12.0-16.0); Immature Granulocytes % 0.5 %; Immature Granulocytes Absolute 0.03 #; Lymphocytes # 1.5 10*3/uL (1.4-4.0); Lymphocytes % 22.7 % (21.3-54.2); Mean Corpuscular HGB Conc 31.7 GM/DL (32-36); Mean Corpuscular Volume 99.7 FL (87-102); Mean Platelet Volume 11.5 FL (9.6-12.0); Monocytes # 0.5 10*3/uL (0.11-0.8); Monocytes % 8.1 % (1.7-12.7); Neutrophils % 64.8 % (38.7-73.9); Platelet Count 111 T/CUMM (130-400); Red Blood Count 3.39 MC/CUMM (3.8-5.5); Red Cell Distribution Width 13.2 % (9.3-17.3); White Blood Count 6.4 T/CUMM (4-12)
[2022-08-03] MEDS: DICYCLOMINE 10 MG CAPSULE PO SCH ×4 (10:35→20:57)
[2022-08-03] MEDS: DESITIN 4OZ/NYSTATIN 15 GRAM MIXTURE PASTE TOP SCH ×2 (10:36→21:00)
[2022-08-03] MEDS: PANTOPRAZOLE 40 MG TABLET PO SCH (10:36)
[2022-08-03] MEDS: levETIRAcetam 500 MG TABLET PO SCH ×2 (10:36→20:57)
[2022-08-03] MEDS: oxyCODONE/ACETAMINOPHEN 5-325 MG TABLET PO SCH ×4 (13:29→20:59)
[2022-08-03] MEDS: LOPERAMIDE 2 MG CAPSULE PO PRN (13:55)
[2022-08-03] MEDS: VANCOMYCIN INJ 1,000 MG in SODIUM CHLORIDE 0.9% 250 ML IV SCH (15:41)
[2022-08-03] MEDS: cefTRIAXone 1,000 MG in SODIUM CHLORIDE 0.9% 100 ML IV SCH (17:02)
[2022-08-04] MEDS: PANTOPRAZOLE 40 MG TABLET PO SCH (09:25)
[2022-08-04] MEDS: DICYCLOMINE 10 MG CAPSULE PO SCH ×2 (09:25→12:53)
[2022-08-04] MEDS: levETIRAcetam 500 MG TABLET PO SCH (09:26)
[2022-08-04] MEDS: oxyCODONE/ACETAMINOPHEN 5-325 MG TABLET PO SCH ×2 (09:26→12:52)
[2022-08-04] MEDS: DESITIN 4OZ/NYSTATIN 15 GRAM MIXTURE PASTE TOP SCH (09:31)
[2022-08-04 11:14] VITALS: BP 130/79
[2022-08-04] MEDS: cefTRIAXone 1,000 MG in SODIUM CHLORIDE 0.9% 100 ML IV SCH (15:36)
== END 2022-08-04 15:57 | disposition hospice, home (50) | DRG 871 ==
LOC: EDUNIT# → EDBD → N.ED 19:42 → SUATTDRO 22:15 → N.EDINP 22:15 → N.3E 23:53
PROVIDERS: ADMIT Internal Medicine; ATTEND Internal Medicine